=== PATIENT | female | born 1960 | race Caucasian/White ===

== ENCOUNTER → 2020-07-13 | Outpatient (CLI) | payer BC | END | disposition home or self-care (01) | LOC: ORTHO 08:25 | PROVIDERS: ATTEND Orthopaedic Surgery | DX: M25.539 Pain in unspecified wrist (principal) ==

== ENCOUNTER → 2020-10-07 | Outpatient (CLI) | payer BC ==
[~2020-10-07] MED LIST: ASPIRIN FOR CHI81 MG PO; LEVOTHYROXINE25 MCG PO; LEXAPRO20 MG PO; LIPITOR20 MG PO; MELATONIN10 M4 PO; NIFEDIPINE60 MG PO
== END | disposition home or self-care (01) ==
LOC: MRI 09:57
PROVIDERS: ATTEND Orthopaedic Surgery
DX: M19.031 Primary osteoarthritis, right wrist (principal); M19.041 Primary osteoarthritis, right hand; M65.841 Other synovitis and tenosynovitis, right hand; M77.8 Other enthesopathies, not elsewhere classified; R60.0 Localized edema

== ENCOUNTER → 2020-10-21 | Outpatient (CLI) | payer BC ==
[2020-10-21 13:42] LABS: BUN 21 mg/dl (7-24); CHLORIDE 108 mmol/L (98-107); CREATININE 0.96 mg/dL (0.55-1.02); SODIUM 139 mmol/L (136-145)
== END ==
LOC: LAB 12:22
PROVIDERS: ATTEND Orthopaedic Surgery
DX: Z01.818 Encounter for other preprocedural examination (principal)

== ENCOUNTER → 2020-10-25 | Day surgery (SDC) | payer BC ==
[2020-10-21 12:42] VITALS: BP 118/52
[~2020-10-25] VITALS: Ht 175.2 cm; Wt 81.6 kg
[2020-10-25 08:42] VITALS: BP 117/61
[2020-10-25 10:00] VITALS: BP 105/54
[2020-10-25 10:15] VITALS: BP 110/46
[2020-10-25 10:30] VITALS: BP 110/46
== END | disposition home or self-care (01) ==
LOC: SDC 10-21 12:00
PROVIDERS: ATTEND Orthopaedic Surgery
DX: M65.841 Other synovitis and tenosynovitis, right hand (principal); M19.031 Primary osteoarthritis, right wrist; F32.9 Major depressive disorder, single episode, unspecified; I65.8 Occlusion and stenosis of other precerebral arteries; Z20.822 Contact with and (suspected) exposure to COVID-19; Z79.899 Other long term (current) drug therapy